=== PATIENT | male | born 1945 | race Caucasian/White ===

== ENCOUNTER → 2020-04-18 | Outpatient (CLI) | payer MEDICARE | END | disposition home or self-care (01) | LOC: SHCH 12:48 | PROVIDERS: ATTEND Internal Medicine Cardiovascular Disease | DX: I25.10 Atherosclerotic heart disease of native coronary artery without angina pectoris (principal) | CPT/HCPCS: 93306; 93356 ==

== ENCOUNTER → 2020-04-24 | Outpatient (CLI) | payer MEDICARE ==
[~2020-04-24] MED LIST: REGADENOSON 0.4 MG/5 ML PF SYG IVP SCH
== END | disposition home or self-care (01) ==
LOC: SHCH 08:30 → EDUNIT# 08:40
PROVIDERS: ATTEND Internal Medicine Cardiovascular Disease
DX: I25.10 Atherosclerotic heart disease of native coronary artery without angina pectoris (principal)
CPT/HCPCS: 78452; 93017; 96374; A9500 ×2; J2785

== ENCOUNTER → 2021-08-13 | Outpatient (CLI) | payer MEDICARE | END | disposition home or self-care (01) | LOC: SHCH 08:42 | PROVIDERS: ATTEND Internal Medicine Cardiovascular Disease | DX: I65.22 Occlusion and stenosis of left carotid artery (principal) | CPT/HCPCS: 93880 ==

== ENCOUNTER 2022-08-22 08:02 | Inpatient (IN) | payer MEDICARE ==
[~2022-08-22] VITALS: Ht 177.8 cm; Wt 104.2 kg
[2022-08-22 08:22] LABS: BASOPHILS % (AUTO) 0.2 % (0.0-5.0); EOSINOPHILS % (AUTO) 1.1 % (0.0-8.0); HEMATOCRIT 43.6 % (42-54); LYMPHOCYTES % (AUTO) 22.1 % (21.0-51.0); MEAN CORPUSCULAR HGB CONC 33.7 g/dL (32.0-36.0); MONOCYTES % (AUTO) 8.8 % (3.0-13.0); NEUTROPHILS % (AUTO) 67.6 % (40.0-77.0); PLATELET COUNT (AUTO) 100 K/uL (130-400); RED BLOOD CELL COUNT(AUTO) 4.59 MIL/uL (4.50-6.20); RED CELL DISTRIBUTION WIDTH 13.2 % (11.0-15.5); WHITE BLOOD COUNT (AUTO) 4.6 K/uL (4.8-10.8)
[2022-08-22 08:30] LABS: CREATININE 1.2 mg/dL (0.5-1.5); POTASSIUM 4.3 mmol/L (3.5-5.1)
[2022-08-22 08:35] LABS: ALBUMIN 3.1 g/dL (3.5-5.0); TOTAL PROTEIN, SERUM 6.2 g/dL (6.0-8.3)
[2022-08-22] MEDS ORDERED: AMIODARONE 150MG VIAL IV SCH (08:48)
[2022-08-22] MEDS ORDERED: DILTIAZEM 125 MG/25 ML INJ IV ONE (08:48)
[2022-08-22] MEDS ORDERED: DILTIAZEM 25MG INJ IVP SCH (09:00)
[2022-08-22] MEDS ORDERED: LACTULOSE 20 GM/30 ML UDCUP PO PRN (09:30)
[2022-08-22] MEDS ORDERED: LIDOCAINE HCL-MPF 1% 2ML VIAL IV PRN (09:30)
[2022-08-22] MEDS ORDERED: HYDROCODONE/ACETAMINOPHEN 5/325 MG TAB PO PRN ×2 (09:30)
[2022-08-22] MEDS ORDERED: POTASSIUM CHLORIDE 10% ELIXIR 20 MEQ/15 ML UDCUP PO PRN (09:30)
[2022-08-22] MEDS ORDERED: DiphenhydrAMINE HCL 50 MG/ML VIAL IV PRN (09:30)
[2022-08-22] MEDS ORDERED: GUAIFENESIN-DM 200/20 MG 10 ML PO PRN (09:30)
[2022-08-22] MEDS ORDERED: ONDANSETRON 4MG INJ IV PRN (09:30)
[2022-08-22] MEDS ORDERED: KCL 20 MEQ ERTAB PO PRN (09:30)
[2022-08-22] MEDS ORDERED: ACETAMINOPHEN 325 MG TAB PO PRN ×2 (09:30)
[2022-08-22] MEDS ORDERED: MAGNESIUM 2GM PREMIX 50ML 50 ML IV PRN (09:30)
[2022-08-22] MEDS ORDERED: POTASSIUM CHLORIDE 20MEQ/100ML 100 ML IV PRN (09:30)
[2022-08-22] MEDS ORDERED: MAG/ALUM/SIMETH 30 ML UDCUP PO PRN (09:30)
[2022-08-22] MEDS ORDERED: HYDROMORPHONE 1 MG INJ IV PRN (09:30)
[2022-08-22] MEDS ORDERED: NITROGLYCERIN 0.4 MG SL TAB SL PRN (09:30)
[2022-08-22] MEDS ORDERED: DIPHENHYDRAMINE HCL 25 MG CAPSULE PO PRN (09:30)
[2022-08-22 10:34] VITALS: BP 149/100
[2022-08-22 12:05] VITALS: BP 131/78
[2022-08-22] MEDS ORDERED: LISI20TA24 PO (12:44)
[2022-08-22] MEDS ORDERED: MECO10005 PO (12:44)
[2022-08-22] MEDS ORDERED: ATOR10TA69 PO (12:44)
[2022-08-22] MEDS ORDERED: METO25TA6 PO (12:44)
[2022-08-22] MEDS ORDERED: FISH1CAP27 PO (12:44)
[2022-08-22] MEDS ORDERED: AEC81 PO (12:44)
[2022-08-22] MEDS ORDERED: AMLO-257 PO (12:44)
[2022-08-22] MEDS ORDERED: ROSU40TA21 PO (12:48)
[2022-08-22] MEDS ORDERED: METO25 PO (12:48)
[2022-08-22] MEDS: METOPROLOL TARTRATE 1 MG/ML 5ML VIAL IV PRN ×2 (15:25→20:02)
[2022-08-22] MEDS: BENZONATATE 100 MG CAPSULE PO SCH ×2 (15:25→20:01)
[2022-08-22 17:02] VITALS: BP 127/64
[2022-08-22 19:30] VITALS: BP 161/93
[2022-08-22] MEDS: FAMOTIDINE 20MG TAB PO SCH (20:01)
[2022-08-22] MEDS: ATORVASTATIN 40 MG TABLET PO SCH (20:01)
[2022-08-22] MEDS: FAMOTIDINE 20MG VIAL IV SCH (20:08)
[2022-08-22 23:03] VITALS: BP 139/97
[2022-08-23] MEDS: METOPROLOL TARTRATE 1 MG/ML 5ML VIAL IV PRN (03:04)
[2022-08-23 03:31] VITALS: BP 147/98
[2022-08-23 04:41] LABS: BASOPHILS % (AUTO) 0.4 % (0.0-5.0); EOSINOPHILS % (AUTO) 1.1 % (0.0-8.0); HEMATOCRIT 43.8 % (42-54); LYMPHOCYTES % (AUTO) 25.6 % (21.0-51.0); MEAN CORPUSCULAR HEMOGLOBIN 31.6 pg (27.0-33.0); MEAN CORPUSCULAR HGB CONC 32.6 g/dL (32.0-36.0); MEAN CORPUSCULAR VOLUME 96.9 fL (79-99); MONOCYTES % (AUTO) 8.4 % (3.0-13.0); NEUTROPHILS % (AUTO) 64.3 % (40.0-77.0); PLATELET COUNT (AUTO) 97 K/uL (130-400); RED BLOOD CELL COUNT(AUTO) 4.52 MIL/uL (4.50-6.20); RED CELL DISTRIBUTION WIDTH 13.1 % (11.0-15.5); WHITE BLOOD COUNT (AUTO) 4.5 K/uL (4.8-10.8)
[2022-08-23 04:48] LABS: INR 0.97 (0.85-1.15); PROTHROMBIN TIME 10.6 SEC (9.6-11.6)
[2022-08-23 04:49] LABS: PARTIAL THROMBOPLASTIN TIME 28.4 SEC (26.3-35.5)
[2022-08-23 05:17] LABS: MAGNESIUM 1.7 mg/dL (1.80-2.40); PHOSPHORUS 3.2 mg/dL (2.5-4.9); POTASSIUM 4.4 mmol/L (3.5-5.1)
[2022-08-23 07:40] VITALS: BP 127/89
[2022-08-23] MEDS: ASPIRIN 81 MG EC TAB PO SCH (08:18)
[2022-08-23] MEDS: BENZONATATE 100 MG CAPSULE PO SCH ×3 (08:18→20:13)
[2022-08-23] MEDS: ENOXAPARIN SODIUM 40 MG/0.4 ML SYRINGE SQ SCH (08:19)
[2022-08-23] MEDS: FAMOTIDINE 20MG TAB PO SCH ×2 (08:19→20:13)
[2022-08-23] MEDS: FAMOTIDINE 20MG VIAL IV SCH ×2 (08:19→19:16)
[2022-08-23] MEDS: METOPROLOL TARTRATE 50 MG TAB PO SCH ×3 (08:47→20:13)
[2022-08-23 11:27] VITALS: BP 123/75
[2022-08-23 16:00] VITALS: BP 125/72
[2022-08-23] MEDS: ATORVASTATIN 40 MG TABLET PO SCH (20:13)
[2022-08-23 20:17] VITALS: BP 121/94
[2022-08-24] VITALS: BP 130/79
[2022-08-24 03:55] VITALS: BP 130/74
[2022-08-24 04:02] LABS: BASOPHILS % (AUTO) 0.2 % (0.0-5.0); EOSINOPHILS % (AUTO) 1.7 % (0.0-8.0); HEMATOCRIT 41.1 % (42-54); MEAN CORPUSCULAR HEMOGLOBIN 31.4 pg (27.0-33.0); MEAN CORPUSCULAR HGB CONC 33.1 g/dL (32.0-36.0); MEAN CORPUSCULAR VOLUME 94.9 fL (79-99); MONOCYTES % (AUTO) 6.9 % (3.0-13.0); PLATELET COUNT (AUTO) 94 K/uL (130-400); RED BLOOD CELL COUNT(AUTO) 4.33 MIL/uL (4.50-6.20); WHITE BLOOD COUNT (AUTO) 4.2 K/uL (4.8-10.8)
[2022-08-24 04:19] LABS: CREATININE 0.8 mg/dL (0.5-1.5)
[2022-08-24 07:04] VITALS: BP 133/74
[2022-08-24] MEDS: ENOXAPARIN SODIUM 40 MG/0.4 ML SYRINGE SQ SCH (07:43)
[2022-08-24] MEDS: FAMOTIDINE 20MG TAB PO SCH (07:43)
[2022-08-24] MEDS: ASPIRIN 81 MG EC TAB PO SCH (07:43)
[2022-08-24] MEDS: METOPROLOL TARTRATE 50 MG TAB PO SCH (07:43)
[2022-08-24] MEDS: BENZONATATE 100 MG CAPSULE PO SCH (07:45)
[2022-08-24] MEDS: FAMOTIDINE 20MG VIAL IV SCH (07:46)
[2022-08-24] MEDS ORDERED: METO50 PO (08:57)
[2022-08-24] MEDS ORDERED: APIX2.5T PO (09:02)
== END 2022-08-24 12:30 | disposition home or self-care (01) | DRG 308 ==
LOC: EDH 08:02 → OBSVTOIN 09:05 → EDHIP 09:05 → 2AH 10:20
PROVIDERS: ADMIT Internal Medicine; ATTEND Internal Medicine
DX: I47.1 Supraventricular tachycardia (principal); U07.1 COVID-19; E78.5 Hyperlipidemia, unspecified; I10 Essential (primary) hypertension; I25.10 Atherosclerotic heart disease of native coronary artery without angina pectoris; I48.91 Unspecified atrial fibrillation; Z79.82 Long term (current) use of aspirin; Z86.73 Personal history of transient ischemic attack (TIA), and cerebral infarction without residual deficits; Z87.891 Personal history of nicotine dependence; Z95.5 Presence of coronary angioplasty implant and graft; Z96.641 Presence of right artificial hip joint; Z96.652 Presence of left artificial knee joint
CPT/HCPCS: 36415; 71045; 80048; 80053; 82948; 83735; 84100; 84484; 85025; 85610; 85730; 87635; 87804; 93005; C9803; G0378; J0282; J1650; J3475; J3490

== ENCOUNTER → 2022-09-08 | Outpatient (CLI) | payer MEDICARE ==
[~2022-09-08] MED LIST changes: +AEC81 PO; +APIX2.5T PO; +FISH1CAP27 PO; +LISI20TA24 PO; +METO50 PO; -REGADENOSON 0.4 MG/5 ML PF SYG IVP SCH; +ROSU40TA21 PO
[2022-09-08 12:50] LABS: BASOPHILS % (AUTO) 0.5 % (0.0-5.0); EOSINOPHILS % (AUTO) 1.4 % (0.0-8.0); LYMPHOCYTES % (AUTO) 22.1 % (21.0-51.0); MEAN CORPUSCULAR HEMOGLOBIN 31.7 pg (27.0-33.0); MEAN CORPUSCULAR HGB CONC 33.2 g/dL (32.0-36.0); MEAN CORPUSCULAR VOLUME 95.4 fL (79-99); MONOCYTES % (AUTO) 8.7 % (3.0-13.0); PLATELET COUNT (AUTO) 198 K/uL (130-400); RED BLOOD CELL COUNT(AUTO) 4.61 MIL/uL (4.50-6.20); RED CELL DISTRIBUTION WIDTH 13.2 % (11.0-15.5); WHITE BLOOD COUNT (AUTO) 6.3 K/uL (4.8-10.8)
[2022-09-08 13:28] LABS: CREATININE 1.1 mg/dL (0.5-1.5); MAGNESIUM 1.8 mg/dL (1.80-2.40); POTASSIUM 4.9 mmol/L (3.5-5.1); T4 (THYROXINE) 7.4 ug/dL (4.7-13.3); THYROID STIMULATING HORMONE 1.62 uIU/mL (0.36-3.74)
== END | disposition home or self-care (01) ==
LOC: LAB 10:53
PROVIDERS: ATTEND Internal Medicine Cardiovascular Disease
DX: I48.19 Other persistent atrial fibrillation (principal)
CPT/HCPCS: 36415; 80048; 83735; 84436; 84443; 84479; 85025

== ENCOUNTER → 2022-09-26 | Outpatient (CLI) | payer MEDICARE | END | disposition home or self-care (01) | LOC: SHCH 12:41 | PROVIDERS: ATTEND Internal Medicine Cardiovascular Disease | DX: I35.0 Nonrheumatic aortic (valve) stenosis (principal); I48.19 Other persistent atrial fibrillation; I51.7 Cardiomegaly | CPT/HCPCS: 93306 ==

== ENCOUNTER → 2022-12-01 | Outpatient (CLI) | payer MEDICARE ==
[~2022-12-01] MED LIST changes: -APIX2.5T PO; +APIX5TAB PO; +CYCL-309 PO; +DOCU-116 PO; +GABA100C PO; +HYDR-4060 PO; -METO50 PO; +METO50TA18 PO; +OMEP20CA12 PO
== END | disposition home or self-care (01) ==
LOC: LAB 15:47
PROVIDERS: ATTEND Student in an Organized Health Care Education/Training Program
DX: T81.49XA Infection following a procedure, other surgical site, initial encounter (principal); X58.XXXA Exposure to other specified factors, initial encounter; Y93.89 Activity, other specified; Y92.89 Other specified places as the place of occurrence of the external cause; Y99.8 Other external cause status
CPT/HCPCS: 87070; 87076; 87077; 87186; 87205

== ENCOUNTER → 2022-12-02 | Outpatient (CLI) | payer MEDICARE ==
[~2022-12-02] MED LIST changes: +DRON400T7 PO; +GLUC-29 PO; +LIDOCAINE HCL 4% LTA SOL 4 ML VIAL TP ONE; +LISI30TA4 PO
== END | disposition home or self-care (01) ==
LOC: WHH 08:20
PROVIDERS: ATTEND Nurse Practitioner Family
DX: T81.31XA Disruption of external operation (surgical) wound, not elsewhere classified, initial encounter (principal); I10 Essential (primary) hypertension; E78.5 Hyperlipidemia, unspecified; I25.10 Atherosclerotic heart disease of native coronary artery without angina pectoris; I48.19 Other persistent atrial fibrillation; M16.12 Unilateral primary osteoarthritis, left hip; E66.9 Obesity, unspecified; Z68.35 Body mass index [BMI] 35.0-35.9, adult; Z79.82 Long term (current) use of aspirin; Z79.01 Long term (current) use of anticoagulants; Z79.899 Other long term (current) drug therapy; Z96.643 Presence of artificial hip joint, bilateral; Z96.612 Presence of left artificial shoulder joint; Z96.652 Presence of left artificial knee joint; Z90.49 Acquired absence of other specified parts of digestive tract; Z87.891 Personal history of nicotine dependence; Y83.8 Other surgical procedures as the cause of abnormal reaction of the patient, or of later complication, without mention of misadventure at the time of the procedure; Y92.238 Other place in hospital as the place of occurrence of the external cause
CPT/HCPCS: 11042; A6248; A4450

== ENCOUNTER → 2022-12-05 | Outpatient (CLI) | payer MEDICARE ==
[~2022-12-05] MED LIST changes: -DRON400T7 PO; -GLUC-29 PO; -LIDOCAINE HCL 4% LTA SOL 4 ML VIAL TP ONE; -LISI30TA4 PO
[2022-12-05 14:21] LABS: CREATININE 0.9 mg/dL (0.5-1.5); DIGOXIN 0.59 ng/mL (0.50-2.00); POTASSIUM 4.4 mmol/L (3.5-5.1)
== END | disposition home or self-care (01) ==
LOC: LAB 10:53
PROVIDERS: ATTEND Internal Medicine Cardiovascular Disease
DX: I48.19 Other persistent atrial fibrillation (principal)
CPT/HCPCS: 36415; 80048; 80162

== ENCOUNTER → 2022-12-09 | Outpatient (CLI) | payer MEDICARE ==
[~2022-12-09] MED LIST changes: +CYAN-52 PO; +DIGO125T71 PO; +DRON400T7 PO; +GLUC-29 PO; +LISI30TA4 PO; +OMEP-420 PO
== END | disposition home or self-care (01) ==
LOC: WHH 11:00
PROVIDERS: ATTEND Nurse Practitioner Family
DX: T81.31XD Disruption of external operation (surgical) wound, not elsewhere classified, subsequent encounter (principal); I10 Essential (primary) hypertension; E78.5 Hyperlipidemia, unspecified; I25.10 Atherosclerotic heart disease of native coronary artery without angina pectoris; I48.91 Unspecified atrial fibrillation; M16.12 Unilateral primary osteoarthritis, left hip; E66.9 Obesity, unspecified; Z68.35 Body mass index [BMI] 35.0-35.9, adult; Z79.82 Long term (current) use of aspirin; Z79.01 Long term (current) use of anticoagulants; Z79.899 Other long term (current) drug therapy; Z96.643 Presence of artificial hip joint, bilateral; Z96.612 Presence of left artificial shoulder joint; Z96.652 Presence of left artificial knee joint; Z90.49 Acquired absence of other specified parts of digestive tract; Z87.891 Personal history of nicotine dependence; Y83.8 Other surgical procedures as the cause of abnormal reaction of the patient, or of later complication, without mention of misadventure at the time of the procedure
CPT/HCPCS: 11042

== ENCOUNTER → 2022-12-16 | Outpatient (CLI) | payer MEDICARE ==
[~2022-12-16] MED LIST changes: -CYCL-309 PO; -DOCU-116 PO; -GABA100C PO; -HYDR-4060 PO; +LIDOCAINE HCL 4% LTA SOL 4 ML VIAL TP ONE; -LISI20TA24 PO
== END ==
LOC: WHH 09:59
PROVIDERS: ATTEND Nurse Practitioner Family
DX: T81.31XD Disruption of external operation (surgical) wound, not elsewhere classified, subsequent encounter (principal); I10 Essential (primary) hypertension; E78.5 Hyperlipidemia, unspecified; I25.10 Atherosclerotic heart disease of native coronary artery without angina pectoris; I48.19 Other persistent atrial fibrillation; M16.12 Unilateral primary osteoarthritis, left hip; K21.9 Gastro-esophageal reflux disease without esophagitis; G47.33 Obstructive sleep apnea (adult) (pediatric); E78.00 Pure hypercholesterolemia, unspecified; E66.01 Morbid (severe) obesity due to excess calories; Z68.35 Body mass index [BMI] 35.0-35.9, adult; Z79.01 Long term (current) use of anticoagulants; Z90.49 Acquired absence of other specified parts of digestive tract; Z96.643 Presence of artificial hip joint, bilateral; Z96.652 Presence of left artificial knee joint; Z96.612 Presence of left artificial shoulder joint; Z87.891 Personal history of nicotine dependence; Z79.82 Long term (current) use of aspirin; Z79.899 Other long term (current) drug therapy; Y83.8 Other surgical procedures as the cause of abnormal reaction of the patient, or of later complication, without mention of misadventure at the time of the procedure
CPT/HCPCS: G0463

== ENCOUNTER 2022-12-17 08:40 | Day surgery (SDC) | payer MEDICARE ==
[2022-12-12 14:13] VITALS: BP 145/85
[2022-12-12 14:38] LABS: BASOPHILS % (AUTO) 0.5 % (0.0-5.0); EOSINOPHILS % (AUTO) 1.9 % (0.0-8.0); LYMPHOCYTES % (AUTO) 18.8 % (21.0-51.0); MEAN CORPUSCULAR HEMOGLOBIN 31.1 pg (27.0-33.0); MEAN CORPUSCULAR HGB CONC 31.6 g/dL (32.0-36.0); MEAN CORPUSCULAR VOLUME 98.4 fL (79-99); MONOCYTES % (AUTO) 10.7 % (3.0-13.0); NEUTROPHILS % (AUTO) 67.7 % (40.0-77.0); PLATELET COUNT (AUTO) 163 K/uL (130-400); RED BLOOD CELL COUNT(AUTO) 3.86 MIL/uL (4.50-6.20); RED CELL DISTRIBUTION WIDTH 14.3 % (11.0-15.5); WHITE BLOOD COUNT (AUTO) 5.7 K/uL (4.8-10.8)
[2022-12-12 14:50] LABS: INR 1.08 (0.85-1.15); POTASSIUM 4.8 mmol/L (3.5-5.1); PROTHROMBIN TIME 11.7 SEC (9.6-11.6)
[2022-12-12 14:52] LABS: PARTIAL THROMBOPLASTIN TIME 30.5 SEC (26.3-35.5)
[2022-12-17] VITALS (13 sets, daily range): BP systolic 104–174; BP diastolic 53–82
[~2022-12-17] VITALS: Ht 177.8 cm; Wt 111.1 kg
[~2022-12-17 08:40] MED LIST changes: -CYAN-52 PO; +CYCL-309 PO; -DIGO125T71 PO; +DOCU-116 PO; +GABA100C PO; +HYDR-4060 PO; -LIDOCAINE HCL 4% LTA SOL 4 ML VIAL TP ONE; +LISI20TA24 PO; -OMEP-420 PO
[2022-12-17] MEDS ORDERED: DIGO125T71 PO ×2 (09:56)
[2022-12-17] MEDS ORDERED: CYAN-52 PO ×2 (09:56)
[2022-12-17] MEDS ORDERED: AEC81 PO ×2 (09:57)
[2022-12-17] MEDS ORDERED: LIDOCAINE HCL-MPF 2% 10ML AMP IJ ONE (09:59)
[2022-12-17] MEDS ORDERED: OMEP-420 PO ×2 (09:59)
[2022-12-17] MEDS ORDERED: PROPOFOL 10 MG/ML 20ML VIAL IV ONE (09:59)
[2022-12-17] MEDS ORDERED: METO50TA18 PO ×2 (11:38)
== END 2022-12-17 11:45 | disposition home or self-care (01) ==
LOC: DAH 08:40 → CLH 08:40
PROVIDERS: ATTEND Internal Medicine Cardiovascular Disease
DX: I48.19 Other persistent atrial fibrillation (principal); Z20.822 Contact with and (suspected) exposure to COVID-19; I35.0 Nonrheumatic aortic (valve) stenosis; I10 Essential (primary) hypertension; I25.10 Atherosclerotic heart disease of native coronary artery without angina pectoris; K21.9 Gastro-esophageal reflux disease without esophagitis; E66.01 Morbid (severe) obesity due to excess calories; G47.33 Obstructive sleep apnea (adult) (pediatric); E78.00 Pure hypercholesterolemia, unspecified; Z96.642 Presence of left artificial hip joint; Z98.890 Other specified postprocedural states; Z68.35 Body mass index [BMI] 35.0-35.9, adult; Z79.899 Other long term (current) drug therapy; Z79.01 Long term (current) use of anticoagulants; Z79.82 Long term (current) use of aspirin
CPT/HCPCS: 80048; 85025; 85610; 85730; 87426; 36415; 92960; 93005 ×2; A4223 ×3; J2704; J3490; A4615; A4215; A7002; A4222; A4221; A4663; A4216; A4606; 99156

== ENCOUNTER → 2022-12-23 | Outpatient (CLI) | payer MEDICARE ==
[~2022-12-23] MED LIST changes: +CYAN-52 PO; -CYCL-309 PO; -DOCU-116 PO; -GABA100C PO; -HYDR-4060 PO; +LIDOCAINE HCL 4% LTA SOL 4 ML VIAL TP ONE; -LISI20TA24 PO; +OMEP-420 PO; -OMEP20CA12 PO
== END | disposition home or self-care (01) ==
LOC: WHH 10:08
PROVIDERS: ATTEND Nurse Practitioner Family
DX: T81.31XD Disruption of external operation (surgical) wound, not elsewhere classified, subsequent encounter (principal); I10 Essential (primary) hypertension; E78.5 Hyperlipidemia, unspecified; I48.19 Other persistent atrial fibrillation; I25.10 Atherosclerotic heart disease of native coronary artery without angina pectoris; E66.01 Morbid (severe) obesity due to excess calories; K21.9 Gastro-esophageal reflux disease without esophagitis; M16.12 Unilateral primary osteoarthritis, left hip; G47.33 Obstructive sleep apnea (adult) (pediatric); E78.00 Pure hypercholesterolemia, unspecified; Z79.01 Long term (current) use of anticoagulants; Z68.35 Body mass index [BMI] 35.0-35.9, adult; Z90.49 Acquired absence of other specified parts of digestive tract; Z96.643 Presence of artificial hip joint, bilateral; Z96.652 Presence of left artificial knee joint; Z96.612 Presence of left artificial shoulder joint; Z87.891 Personal history of nicotine dependence; Z79.899 Other long term (current) drug therapy; Y83.8 Other surgical procedures as the cause of abnormal reaction of the patient, or of later complication, without mention of misadventure at the time of the procedure
CPT/HCPCS: G0463

== ENCOUNTER → 2022-12-30 | Outpatient (CLI) | payer MEDICARE | END | disposition home or self-care (01) | LOC: WHH 09:55 | PROVIDERS: ATTEND Nurse Practitioner Family | DX: T81.31XD Disruption of external operation (surgical) wound, not elsewhere classified, subsequent encounter (principal); I10 Essential (primary) hypertension; E78.5 Hyperlipidemia, unspecified; I48.19 Other persistent atrial fibrillation; I25.10 Atherosclerotic heart disease of native coronary artery without angina pectoris; E66.01 Morbid (severe) obesity due to excess calories; K21.9 Gastro-esophageal reflux disease without esophagitis; M16.12 Unilateral primary osteoarthritis, left hip; G47.33 Obstructive sleep apnea (adult) (pediatric); E78.00 Pure hypercholesterolemia, unspecified; Z79.01 Long term (current) use of anticoagulants; Z68.35 Body mass index [BMI] 35.0-35.9, adult; Z90.49 Acquired absence of other specified parts of digestive tract; Z96.643 Presence of artificial hip joint, bilateral; Z96.652 Presence of left artificial knee joint; Z96.612 Presence of left artificial shoulder joint; Z87.891 Personal history of nicotine dependence; Z79.899 Other long term (current) drug therapy; Y83.8 Other surgical procedures as the cause of abnormal reaction of the patient, or of later complication, without mention of misadventure at the time of the procedure | CPT/HCPCS: G0463 ==

== ENCOUNTER 2023-02-06 06:54 | Day surgery (SDC) | payer MEDICARE ==
[2023-02-04 10:23] LABS: BASOPHILS # (AUTO) 0.03 K/uL (0.00-0.20); BASOPHILS % (AUTO) 0.6 % (0.0-5.0); EOSINOPHILS % (AUTO) 1.8 % (0.0-8.0); HEMATOCRIT 39.1 % (42-54); IMMATURE GRANULOCYTE ABSOLUTE 0.02 K/uL (0-1); LYMPHOCYTES # (AUTO) 1.1 K/uL (1.0-4.8); MEAN CORPUSCULAR HEMOGLOBIN 28.9 pg (27.0-33.0); MEAN CORPUSCULAR HGB CONC 30.9 g/dL (32.0-36.0); MEAN CORPUSCULAR VOLUME 93.5 fL (79-99); MONOCYTES # (AUTO) 0.5 K/uL (0.1-1.0); MONOCYTES % (AUTO) 8.6 % (3.0-13.0); NEUTROPHILS # (AUTO) 3.7 K/uL (1.8-7.7); NEUTROPHILS % (AUTO) 68.6 % (40.0-77.0); PLATELET COUNT (AUTO) 160 K/uL (130-400); RED BLOOD CELL COUNT(AUTO) 4.18 MIL/uL (4.50-6.20); RED CELL DISTRIBUTION WIDTH 14.4 % (11.0-15.5); WHITE BLOOD COUNT (AUTO) 5.5 K/uL (4.8-10.8)
[2023-02-04 10:38] VITALS: BP 143/89; PULSE 63; RESP 18
[2023-02-04 10:55] LABS: ALBUMIN 3.2 g/dL (3.5-5.0); BILIRUBIN,TOTAL 0.8 mg/dL (0.2-1.0); CREATININE 1.2 mg/dL (0.5-1.5); POTASSIUM 4.7 mmol/L (3.5-5.1); THYROID STIMULATING HORMONE 2.19 uIU/mL (0.36-3.74); TOTAL PROTEIN, SERUM 6.2 g/dL (6.0-8.3)
[~2023-02-06] VITALS: Ht 177.8 cm; Wt 109.7 kg
[2023-02-06] VITALS (8 sets, daily range): BP systolic 122–179; BP diastolic 60–97; PULSE 45–56; RESP 15–17
[~2023-02-06 06:54] MED LIST changes: +AMIO200T68 PO; -DRON400T7 PO; -LIDOCAINE HCL 4% LTA SOL 4 ML VIAL TP ONE; +TYLENOL ARTHRITIS PO
[2023-02-06] MEDS ORDERED: 0.9%NACL 1000ML 1,000 ML IV ONE (08:50)
[2023-02-06] MEDS ORDERED: PROPOFOL 10 MG/ML 20ML VIAL IV ONE (10:20)
== END 2023-02-06 11:40 | disposition home or self-care (01) ==
LOC: DAH 06:54
PROVIDERS: ATTEND Internal Medicine Cardiovascular Disease
DX: I48.19 Other persistent atrial fibrillation (principal); Z20.822 Contact with and (suspected) exposure to COVID-19; K21.9 Gastro-esophageal reflux disease without esophagitis; I10 Essential (primary) hypertension; I25.10 Atherosclerotic heart disease of native coronary artery without angina pectoris; E66.01 Morbid (severe) obesity due to excess calories; E78.00 Pure hypercholesterolemia, unspecified; Z68.34 Body mass index [BMI] 34.0-34.9, adult; Z90.49 Acquired absence of other specified parts of digestive tract; Z98.890 Other specified postprocedural states; Z98.84 Bariatric surgery status; Z95.5 Presence of coronary angioplasty implant and graft; Z79.899 Other long term (current) drug therapy; Z79.82 Long term (current) use of aspirin; Z79.01 Long term (current) use of anticoagulants
CPT/HCPCS: 87426; 84443; 80053; 85025; 36415; 92960; 82948; 93005 ×2; J7030; J2704; A4615; A4215; A4222; A4221; A4663; A4216; A4606; A4223 ×3; 99156; J3490

== ENCOUNTER → 2024-04-26 | Outpatient (CLI) | payer MEDICARE ==
[~2024-04-26] MED LIST changes: -ROSU40TA21 PO; +ROSU40TA88 PO
== END | disposition home or self-care (01) ==
LOC: SHCH 11:00
PROVIDERS: ATTEND Internal Medicine Cardiovascular Disease
DX: I65.21 Occlusion and stenosis of right carotid artery (principal)
CPT/HCPCS: 93880

== ENCOUNTER 2024-07-27 06:00 | Day surgery (SDC) | payer MEDICARE ==
[2024-07-21 15:37] LABS: BASOPHILS # (AUTO) 0.03 K/uL (0.00-0.20); BASOPHILS % (AUTO) 0.5 % (0.0-5.0); EOSINOPHILS # (AUTO) 0.09 K/uL (0.00-0.70); EOSINOPHILS % (AUTO) 1.4 % (0.0-8.0); HEMATOCRIT 40.3 % (42-54); IMMATURE GRANULOCYTE ABSOLUTE 0.02 K/uL (0-1); LYMPHOCYTES # (AUTO) 1.1 K/uL (1.0-4.8); LYMPHOCYTES % (AUTO) 17.9 % (21.0-51.0); MEAN CORPUSCULAR HEMOGLOBIN 31.8 pg (27.0-33.0); MEAN CORPUSCULAR VOLUME 99.3 fL (79-99); MONOCYTES # (AUTO) 0.6 K/uL (0.1-1.0); NEUTROPHILS # (AUTO) 4.5 K/uL (1.8-7.7); NEUTROPHILS % (AUTO) 70.9 % (40.0-77.0); PLATELET COUNT (AUTO) 142 K/uL (130-400); RED BLOOD CELL COUNT(AUTO) 4.06 MIL/uL (4.50-6.20); RED CELL DISTRIBUTION WIDTH 12.7 % (11.0-15.5); WHITE BLOOD COUNT (AUTO) 6.3 K/uL (4.8-10.8)
[2024-07-21 15:43] VITALS: BP 150/70; PULSE 71; RESP 18; TEMP 97.9
[2024-07-21 15:46] LABS: ALBUMIN 3.2 g/dL (3.5-5.0); INR 0.94 (0.85-1.15); POTASSIUM 5.2 mmol/L (3.5-5.1); PROTHROMBIN TIME 10.6 SEC (9.6-11.6)
[2024-07-21 15:48] LABS: PARTIAL THROMBOPLASTIN TIME 26.1 SEC (26.3-35.5)
--- NOTE | 2024-07-25 13:08 | NUR ---
RE: LABS REPORTED MRSA RESULTS TO DR STORM, STANDING ORDERS IN CHART. NO NEW ORDERS RECEIVED.
[~2024-07-27] VITALS: Ht 177.8 cm; Wt 108.0 kg
[2024-07-27] VITALS (13 sets, daily range): BP systolic 121–173; BP diastolic 65–78; PULSE 58–70; RESP 14–19; TEMP 97.2–97.6
[~2024-07-27 06:00] MED LIST changes: -AMIO200T68 PO; -CYAN-52 PO; +FISH12002 PO; -FISH1CAP27 PO; -METO50TA18 PO; -TYLENOL ARTHRITIS PO; +VITAMIN B12 PO
[2024-07-27] MEDS ORDERED: acetaMINOPHEN 100 ML ONE (06:38)
[2024-07-27] MEDS ORDERED: FAMOTIDINE 20MG VIAL IV ONE (06:39)
[2024-07-27] MEDS ORDERED: ROPivacaine 0.5% 5MG/ML 30ML ONE (06:40)
[2024-07-27] MEDS ORDERED: ketaMINE 50MG/ML SYRINGE 50 MG/ML DISP.SYRIN ONE (06:41)
[2024-07-27] MEDS ORDERED: LIDOCAINE PF 100MG/5ML (2%) SYRINGE 5ML ONE (06:45)
[2024-07-27] MEDS ORDERED: proPOFol 10 MG/ML 20ML VIAL IV ONE (06:45)
[2024-07-27] MEDS ORDERED: FENTanyl CITRate PF 50 MCG/1 ML 2ML VIAL ONE (06:46)
[2024-07-27] MEDS ORDERED: rocuRONium bROMide 10MG/1ML 5ML VL ONE ×2 (06:46→08:32)
--- NOTE | 2024-07-27 06:48 | EKG ---
[facility] Test Date: 2024-07-27 Test Time: 06:32:13 Pat Name: ASHLEY RANDOLPH Department: [facility] Room: [address] Gender: M Philanthropy Officer: [id number] : 1945 Requested By: CHANCE QUIROS Order Number: [id number] Reading MD: Addis Dela Cruz Measurements Intervals Irene Rate: 71 P: -28 PA: 161 QRS: 45 QRSD: 78 T: 30 QT: 391 QTc: 425 Interpretive Statements Sinus rhythm Atrial premature complexes Compared to ECG 02/06/2023 10:27:40 Atrial premature complex(es) now present Sinus bradycardia no longer present First degree AV block no longer present Electronically Signed On 07-27-2024 17:10:06 ROLLER COASTER ENGINEER by Addis Dela Cruz Please click the below link to view image of tracing.
[2024-07-27] MEDS: ceFAZolin SODIUM 2 GM VIAL ONE (07:00)
[2024-07-27] MEDS: VANCOMYCIN IV ONE (07:00)
[2024-07-27] MEDS: LACTATED RINGERS 1000ML 1,000 ML IV ONE (07:00)
[2024-07-27] MEDS ORDERED: TRANEXAMIC ACID 1000MG/10ML ONE (07:07)
[2024-07-27] MEDS: VANCOMYCIN 2GM/500 ML BAG 500 ML IV ONE (07:13)
[2024-07-27] MEDS ORDERED: phenylEPHRINE HCL 10 MG/ML 1ML VIAL IV ONE (07:38)
[2024-07-27] MEDS ORDERED: ondanSETRON 4MG INJ ONE (07:48)
[2024-07-27] MEDS ORDERED: dexaMETHasone SOD PHOSPHATE 10MG/ML 1ML VIAL ONE (07:48)
[2024-07-27] MEDS ORDERED: GLYCOPYRROLATE 0.2 MG/ML 5 ML VIAL ONE (09:08)
[2024-07-27] MEDS ORDERED: NEOSTIGMINE METHYLSULFATE 1MG/ML IV ONE (09:08)
[2024-07-27] MEDS ORDERED: CYCL5TAB3 PO (10:27)
[2024-07-27] MEDS ORDERED: HYDR-4060 PO (10:27)
[2024-07-27] MEDS ORDERED: DOCU-116 PO (10:27)
--- NOTE | 2024-07-27 10:41 | OP ---
Operative Note: DATE OF PROCEDURE: 07/27/24 SURGEON: LONDON STORM MD PERSONAL CONSULTANT: Roland Dover and PADDY Renteria ANESTHESIA: General and interscalene block ANESTHESIOLOGIST/HOSPITAL FOOD SERVICE WORKER: MONICA Day PREOPERATIVE DIAGNOSIS: Right shoulder glenohumeral osteoarthritis POSTOPERATIVE DIAGNOSIS: Right shoulder glenohumeral osteoarthritis PROCEDURE: Right reverse total shoulder arthroplasty ESTIMATED BLOOD LOSS: 200 cc COMPLICATIONS: None DRAINS: None SPECIMENS: resected bone from the humeral head not sent to pathology IMPLANTS: [employer] size 40/16 by 120 mm FX V135 humeral stem, 40/+3 humeral cup 135/145, 40 eccentric glenosphere, standard base plate with central screw, compression screw, and three locking screws INDICATIONS: 79-year-old male with right shoulder pain due to severe right glenohumeral osteoarthritis. The patient was failing conservative management and we discussed undergoing right total shoulder arthroplasty with the consideration of reverse of the rotator cuff was of poor tissue quality. After discussion the risk, benefits, and alternatives, the patient voluntarily agreed to undergo the aforementioned procedure. DESCRIPTION OF PROCEDURE: Patient was properly identified in the preoperative holding area. Surgical site marking was verified and surgery consent reviewed. The patient was then taken to the operating room and placed in supine position on the OR table. After induction of general anesthesia, preoperative antibiotics were given, all bony prominences were well-padded as the patient was transitioned into beach chair positioning. The right upper extremity was then prepped and draped in usual sterile fashion. Surgical time out was done verifying correct surgery, side, site, and location to be performed. We then began the procedure by making approximately 12 cm long incision over the deltopectoral interval using a 10 blade. Hemostasis was performed using Bovie electrocautery. We then dissected through the subcutaneous tissues using the Metzenbaums to identify our deltopectoral interval. We then mobilized the cephalic vein laterally as we opened the interval. We then incised the clavipectoral fascia just lateral to the conjoined tendon and placed our retractor deep to this. We identified the long head of the biceps tendon and performed a tenotomy. We then began elevating the subscapularis off of its insertion on the humeral head using Bovie electrocautery. With external rotation we brought the humeral head into view and released the capsule at the inferior aspect of the head. We released a small portion of the pectoralis off of its insertion on the humerus to allow for better exposure. We then placed our retractors protecting soft tissue. At this point we began using the sounding instruments, hand reaming up to a size 16. We pinned the cutting guide off of the handle in 30 degrees of version and performed the humeral osteotomy. We then broached up to a size 16 x 40. The rongeur was used to clean up our cut. We then placed our retractors around the glenoid to provide adequate exposure of the glenoid. The labrum and long head biceps tendon were resected with Bovie electrocautery. We then used to the guide to insert our central guidepin ensuring we were far enough inferior on the glenoid face. Over the central guidepin we reamed with the all-in-one reamer for the central peg and the faceplate. We then used the deliverer merchandise to clean up the remaining soft tissue and bone. We then thoroughly irrigated out the glenoid bone and impacted into position the glenoid baseplate. We elected to place a central screw through the base plate. We then placed 1 compression screw and 3 locking screw in the baseplate. We noted using a freer elevator that the baseplate was appropriately seated. We elected to use a 40 mm eccentric glenosphere. Glenosphere was then seated in standard fashion with the setscrew tightened. We then removed our retractors and dislocated the humerus once more. We noted that we did not have good cortical fixation or metaphyseal fit of the stem so we plan to use a interlocking screw. We then elected to trial with a size +3 polyethylene. With this in place, we reduced the humerus and noted good stable range of motion. We then dislocated the humerus and remove the trial components. We thoroughly irrigated out the bone. We seated the final stem implant and placed a locking screw through the jig. We noted a small crack in the proximal humerus but found that the screw had stabilized our implant. We then trialed once more. The size +3 135/145 polyethylene was still appropriate so we opened the final polyethylene and implanted this in standard fashion. We then reduced the humerus once more and ensured appropriate range of motion and stability. We checked the position of the components under fluoroscopy and found him to be appropriate. We thoroughly irrigated out the wound. We then began loosely repairing the deltopectoral interval using #2 Ethibond. Subcutaneous tissue was approximated using 2-0 Vicryl. The skin was closed using a running subcuticular 3-0 Monocryl with Dermabond applied. An Optifoam dressing was applied once the Dermabond dried. The patient was then placed into a sling, awakened from anesthesia, and taken recovery room in stable condition. LONDON STORM MD Jul 27, 2024 10:41
--- NOTE | 2024-07-27 12:54 | HMCIMG ---
SHOULDER COMP 2+VWS RT REASON: ORIF RIGHT TSA, REVERSE TECHNIQUE: 6 surgical spot views were obtained. These document reverse of the right shoulder joint prosthesis placement. Fluoroscopy time was 24 seconds. IMPRESSION: 1. Documentation of shoulder joint prosthesis placement.
--- NOTE | 2024-07-27 13:24 | HMCIMG ---
SHOULDER LTD 1VW RT REASON: post op TECHNIQUE: Single AP view was performed. FINDINGS: There is a total joint prosthesis in place right shoulder. There is no evidence of fracture. There are surgical changes in the soft tissues. IMPRESSION: 1. Documentation of right shoulder joint prosthesis placement.
== END 2024-07-27 12:40 | disposition home or self-care (01) ==
LOC: DAHIP 06:00 → DAH 06:00 → UNDOADMOB 06:00 → DAH 12:40 → EDSTATUS 14:00
PROVIDERS: ATTEND Student in an Organized Health Care Education/Training Program
DX: M19.011 Primary osteoarthritis, right shoulder (principal); M25.511 Pain in right shoulder; I25.10 Atherosclerotic heart disease of native coronary artery without angina pectoris; E78.00 Pure hypercholesterolemia, unspecified; I35.0 Nonrheumatic aortic (valve) stenosis; I48.91 Unspecified atrial fibrillation; I10 Essential (primary) hypertension; E66.9 Obesity, unspecified; E78.5 Hyperlipidemia, unspecified; Z96.652 Presence of left artificial knee joint; Z90.49 Acquired absence of other specified parts of digestive tract; Z95.5 Presence of coronary angioplasty implant and graft; Z96.643 Presence of artificial hip joint, bilateral; Z87.898 Personal history of other specified conditions; Z82.49 Family history of ischemic heart disease and other diseases of the circulatory system; Z79.82 Long term (current) use of aspirin; Z79.899 Other long term (current) drug therapy; Z68.33 Body mass index [BMI] 33.0-33.9, adult
CPT/HCPCS: 73020; 82040; 80048; 85025; 85610; 85730; 84134; 86140; 36415; 87641; 64415; 23472; 82948 ×2; 73030; 93005; A4223 ×2; A4663; J7030; J7120; J3490 ×6; J3010; J1100; J2003; J2704; J2405; J2710; J2795; J2371; J3370; J0690; A4930 ×2; A4649; C1776; A6254; A5120; A4215; A4222; A4221; A4216

== ENCOUNTER 2024-08-08 11:18 | Emergency (ER) | payer MEDICARE ==
[~2024-08-08] VITALS: Ht 177.8 cm; Wt 107.5 kg
[~2024-08-08 11:18] MED LIST changes: +CYCL5TAB3 PO; +DOCU-116 PO; +HYDR-4060 PO
--- NOTE | 2024-08-08 11:28 | ERN ---
ED Note History of Present Illness Stated Complaint: SENT BY Time Seen by MD: 11:22 Dictation: PATIENT IS A 79-YEAR-OLD MALE HERE WITH COMPLAINTS OF A SWELLING TO THE RIGHT ARM ONSET TWO DAYS PRIOR TO ARRIVAL. HE STATES HE IS STATUS POST A RIGHT TOLD HER SHOULDER REPLACEMENT BY DR. LONDON STORM HOWEVER HE DID NOT RESUME HIS ELIQUIS. HE HAS A HISTORY OF DVT, SHE SENT HIM TO THE EMERGENCY ROOM TODAY TO RULE OUT. DISTAL NEUROVASCULAR CMS INTACT RIGHT HAND, CAP REFILL LESS THAN 2 SECONDS Allergies: Coded Allergies: No Known Drug Allergies (Unverified Allergy, Unknown, 04/23/20) Home Meds Active Scripts Cyclobenzaprine HCl (Cyclobenzaprine HCl) 5 Mg Tablet, 5 MG PO TIDP PRN for spasm/pain for 30 Days, #90 TAB 0 Refills Prov:LONDON STORM MD 07/27/24 Docusate Sodium (Colace) 100 Mg Capsule, 1 CAP PO BID for 30 Days, #60 CAP 0 Refills Prov:LONDON STORM MD 07/27/24 Hydrocodone/Acetaminophen (Hydrocodon-Acetaminophen 5-325) 5 Mg-325 Mg Tablet, 1 EACH PO Q4HPRN PRN for post op pain for 7 Days, #42 TAB 0 Refills Prov:LONDON STORM MD 07/27/24 Reported Medications Fish Oil/Borage/Flax/Om3,6,9#1 (Beattie 3-6-9 1,200 mg Softgel) 1,200 Mg Capsule, 1200 MG PO DAILY, CAP 07/21/24 [Vitamin B12] No Conflict Check, 1400 MCG PO DAILY 07/21/24 Omeprazole (Omeprazole) 20 Mg Tab.rap., 20 MG PO BID 12/17/22 Aspirin (ASPIRIN 81 MG ECTAB) 81 Mg Ectab, 81 MG PO DAILY, TAB.EC 12/17/22 Glucosa Berrios 2Kcl/Chondroitin Berrios (Glucosamine & Chondroitin Cap) 1 Each Capsule, 1 EACH PO BID, CAP 12/12/22 Lisinopril (Lisinopril) 30 Mg Tablet, 30 MG PO BID, TAB 12/12/22 Apixaban (Eliquis) 5 Mg Tablet, 5 MG PO BID, TAB 10/24/22 Rosuvastatin Calcium (Rosuvastatin Calcium) 40 Mg Tablet, 1 TAB PO HS 08/22/22 Past Medical History Past Medical History: Hypertension, Other Additional Past Medical Hx: HYPOGLYCEMIA Surgical History: Other Surgical History Other: CARDIAC STENTS, BILATERAL KNEES Family History: Negative Social History: Negative, Lives with family RN Note Reviewed/Agreed w/PFSH: Yes Review of System Dictation CONSTITUTIONAL: NEGATIVE EXCEPT FOR HPI HEAD/FACE: NEGATIVE EXCEPT FOR HPI EENT: NEGATIVE EXCEPT FOR HPI RESPIRATORY: NEGATIVE EXCEPT FOR HPI GASTROINTESTINAL/ABDOMINAL: NEGATIVE EXCEPT FOR HPI GENITOURINARY: NEGATIVE EXCEPT FOR HPI MUSCULOSKELETAL: NEGATIVE EXCEPT FOR HPI RIGHT ARM SWELLING INTEGUMENTARY: NEGATIVE EXCEPT FOR HPI NEUROLOGICAL/PSYCH: NEGATIVE EXCEPT FOR HPI HEMATOLOGIC/LYMPHATIC: NEGATIVE EXCEPT FOR HPI ALL SYSTEMS NEGATIVE, EXCEPT NOTED ABOVE. 13 POINT REVIEW OF SYSTEMS ASSESSED AND ALL NEGATIVE EXCEPT FOR ABOVE. Initial Vital Sign VS Vital Signs Date Time Temp Pulse Resp B/P (MAP) Pulse Ox O2 Delivery O2 Flow Rate FiO2 08/08/24 11:28 97.9 75 16 140/75 98 Room Air 0 08/08/24 14:34 21 Physical Exam Dictation VITAL SIGNS REVIEWED GENERAL APPEARANCE: ALERT, ORIENTED X 3, NO ACUTE DISTRESS, WELL DEVELOPED, NOURISHED. HEAD AND FACE: NON-TRAUMATIC. EYES: PERRL, PINK CONJUNCTIVAS, EYELID NO TRAUMA, ANTERIOR CHAMBER WITH ARCUS SENILIS. EARS: PINNAS INTACT AND NO SIGNS OF TRAUMA OR ERYTHEMA EAR CANALS CLEAR AND NO DISCHARGE TM NO ERYTHEMA NOSE: NO DISCHARGE, NO BLEEDING. OROPHARYNX: MOUTH NORMAL, TONGUE PINK, PHARYNX CLEAR,NO ERYTHEMA, TONSILS NO EXUDATES, NO ABSCESSES NOTED, MUCOUS MEMBRANE MOIST NECK: SUPPLE, NON-TENDER, NO THYROMEGALY, NO MASSES, NO JVD, NO BRUITS BREAST:DEFERRED CHEST:NO TENDERNESS, NO CREPITUS, NO PARADOXICAL MOVEMENT, NO RETRACTIONS LUNGS:CLEAR, WELL-VENTILATED, SYMMETRIC, NO RALES, NO WHEEZING, NO RHONCHI, NO STRIDOR, GOOD BREATH SOUNDS BILATERALLY HEART: REGULAR RATE, REGULAR RHYTHM, NO MURMUR, NO GALLOPS VASCULAR: NO PERIPHERAL EDEMA, ABDOMEN: SOFT, POSITIVE BOWEL SOUNDS, NONDISTENDED, NO GUARDING, NONTENDER, NO REBOUND, NO MASSES NO HEPATOMEGALY, NO SPLENOMEGALY, NO FRANKS'S SIGN, NO HERNIAS. RECTAL: DEFERRED GENITAL: DEFERRED NEUROLOGICAL: NORMAL SPEECH, MOTOR FUNCTION INTACT, SENSORY FUNCTION INTACT MUSCULOSKELETAL: NECK NONTENDER, FULL RANGE OF MOTION, BACK NONTENDER, FULL RANGE OF MOTION, EXTREMITIES: SURGICAL DRESSING INTACT TO RIGHT WRIST. NEUROVASCULAR CMS INTACT GROSSLY TO RIGHT HAND CAP REFILL LESS THAN 2 SECONDS SKIN: COLOR PINK, DRY, NO TURGOR, NO RASH, NO LACERATIONS, NO ABRASIONS, NO CONTUSIONS. LYMPHATIC: DEFERRED Results (Laboratory/Radiology) Laboratory/Radiology US VENOUS DOPPLER UNILATERAL REASON: SWELLING TENDERNESS STATUS POST SHOULDER REPLACEMENT RIGHT ARM. COMPARISON: None Technique: Right upper extremity venous doppler ultrasound was performed with spectral analysis and color flow imaging technique. FINDINGS: There is normal appearance of the visualized portions of subclavian vein. Axillary, brachial, cephalic and basilic veins appear patent without evidence of deep venous thrombosis. Incidental note is made of a fluid collection in the anterior chest wall, 4 x 7 cm, possible hematoma or seroma. IMPRESSION: 1. No evidence of deep venous thrombosis in the right upper extremity. 2. 4 x 7 cm complex fluid collection anterior chest wall, possible seroma or hematoma. Labs Reviewed?: Yes ED Course ED Course Orders Procedure Category Date Status Time Us Venous Doppler US 08/08/24 Resulted Unilateral 11:25 Vital Signs Date Time Temp Pulse Resp B/P (MAP) Pulse Ox O2 Delivery O2 Flow Rate FiO2 08/08/24 14:34 98.4 87 18 171/62 99 Room Air* 0 21 08/08/24 11:28 97.9 75 16 140/75 98 Room Air 0 1400/ATTEMPTED TO LOCATE PATIENT IN THE WAITING ROOM AND ER INTERNAL WAITING ROOM AND HE WAS NOT THERE. CALLED HIS CELL PHONE NUMBER AT AREA CODE [phone] THE VOICEMAIL HAD NOT BEEN SET UP AND I COULD NOT LEAVE NUMBER. Medical Decision Making MDM MEDICAL DISCHARGE MAKING BASED ON ULTRASOUND OF RIGHT UPPER EXTREMITY FOR DVT ULTRASOUND NEGATIVE SWELLING REPRESENTS POSTSURGICAL CHANGES PATIENT MADE AWARE TO CONTINUE HIS ELIQUIS AT HOME AND RANGE OF MOTION EXERCISES TO HIS RIGHT UPPER EXTREMITY PER DR. STORM FOLLOW BACK UP WITH HER DIRECTED MDM: Differential diagnosis: DVT, right arm swelling Risk of complication and/or morbidity or mortality of patient management: None Medications-Per medication reconciliation Need for hospitalization: Patient does not meet criteria for hospitalization. Need for emergency major/minor surgery: No There are no social concerns with this patient. I independently interpreted the test that were performed, results were reviewed by me and considered findings on radiology if ordered. DX & DISP Disposition: Discharge Departure Impression: Primary Impression: Swelling of right upper extremity Condition: Stable Additional Instructions: FOLLOW-UP WITH PRIMARY CARE PROVIDER IN 1 TO 2 DAYS. TAKE MEDICATIONS DIRECTED HERE IN THE EMERGENCY ROOM. OKAY TO CONTINUE HOME MEDICATIONS UNLESS OTHERWISE DISCUSSED DURING YOUR VISIT IN THE EMERGENCY ROOM TODAY. RETURN TO YOUR NEAREST EMERGENCY ROOM IF SYMPTOMS WORSEN OR IF THERE IS NO IMPROVEMENT. CALL 911 IF YOU NEED IMMEDIATE ASSISTANCE. TAKE TYLENOL OR MOTRIN MODJ-[id number]-[id number] NEEDED AND IF NO CONTRAINDICATIONS ARE PRESENT. INCREASE ORAL HYDRATION. A WOUND CULTURE OR URINE CULTURE WAS ORDERED HERE IN THE EMERGENCY ROOM DEPARTMENT PLEASE FOLLOW-UP WITH PRIMARY CARE PROVIDER AND ADVISE THEM TO GET REPEAT PORTS FROM OUR FACILITY. IF YOU HAD ANY VIKTORIA WRAP/SPLINTS THAT WERE APPLIED HERE, PLEASE DO NOT REMOVE THEM UNTIL YOU SEE YOUR PRIMARY CARE OR SPECIALTY. CONTINUE YOUR RANGE OF MOTION EXERCISES TO YOUR RIGHT UPPER EXTREMITY PER DR. LONDON STORM. ALSO, CONTINUE ELIQUIS DIRECTED BY DR. STORM FOLLOW BACK UP WITH HER ANY NEW CHANGES Referrals: EKTA CORRIGAN MD (PCP) Time of Disposition: 13:46 I have reviewed the case, and I agree with, Diagnosis and Plan I performed the substantive portion of the visit. I have reviewed and personally made and approve the management plan that is documented in the notes by myself or the ANIRUDH. I acknowledge full responsibility for the patient's management plan. EYAD SALINAS NP Aug 08, 2024 11:28 MARIO STEEL MD Aug 09, 2024 18:20
--- NOTE | 2024-08-08 12:00 | HMCIMG ---
US VENOUS DOPPLER UNILATERAL REASON: SWELLING TENDERNESS STATUS POST SHOULDER REPLACEMENT RIGHT ARM. COMPARISON: None Technique: Right upper extremity venous doppler ultrasound was performed with spectral analysis and color flow imaging technique. FINDINGS: There is normal appearance of the visualized portions of subclavian vein. Axillary, brachial, cephalic and basilic veins appear patent without evidence of deep venous thrombosis. Incidental note is made of a fluid collection in the anterior chest wall, 4 x 7 cm, possible hematoma or seroma. IMPRESSION: 1. No evidence of deep venous thrombosis in the right upper extremity. 2. 4 x 7 cm complex fluid collection anterior chest wall, possible seroma or hematoma.
[2024-08-08 14:34] VITALS: BP 171/62; PULSE 87; RESP 18; TEMP 98.4; O2SAT 99
== END 2024-08-08 14:42 | disposition home or self-care (01) ==
LOC: EDH 11:18
DX: M79.89 Other specified soft tissue disorders (principal); M79.601 Pain in right arm; I10 Essential (primary) hypertension; Z79.01 Long term (current) use of anticoagulants; Z79.82 Long term (current) use of aspirin; Z79.899 Other long term (current) drug therapy; Z95.5 Presence of coronary angioplasty implant and graft
CPT/HCPCS: 93971; 99284